=== PATIENT | female | born 1970 ===

== ENCOUNTER 2021-07-26 12:17 | Outpatient (CLI) | payer BC, SELFPAY ==
--- NOTE | 2021-07-27 10:22 | WPDNEUROLOGY ---
Neurology EEG Report General Information Date of Study: 07/26/21 TEST eeg DIAGNOSIS tremors with possibility of Parkinson's disease CONDITION OF RECORDING awake and drowsy and sleep EEG NUMBER [id number] CLINICAL HISTORY patient reported she has had migraines for years. Had a head injury about a year ago and since then migraines have increased and she also has tremors EEG DESCRIPTION basic resting occipital frequency consists of large amount of well-organized low to medium voltage 8 to 10 hertz per 2nd alpha admixed with low-voltage 15 to 18 hertz per 2nd beta. Low-voltage beta activity seen diffusely during drowsiness. Hyperventilation not done. Photic stimulation produced normal drive. Non paroxysmal. Nonfocal. Nonlateralizing. IMPRESSION Normal record
== END 2021-07-26 12:18 | disposition home or self-care (01) ==
LOC: ANHNEURO 12:20
PROVIDERS: Visit Provider Psychiatry & Neurology Neurology
DX: R25.1 Tremor, unspecified (principal)
CPT/HCPCS: 95816